=== PATIENT | female | born 1980 | race Hispanic/Latino ===

== ENCOUNTER 2017-09-22 07:05 | Day surgery (SDC) | payer BC ==
[2017-09-20 16:47] VITALS: BP 122/74
[2017-09-20 16:55] LABS: BASOPHILS % (AUTO) 0.6 % (0.0-5.0); EOSINOPHILS % (AUTO) 1.3 % (0.0-8.0); HEMATOCRIT 35.5 % (36-48); LYMPHOCYTES % (AUTO) 30.3 % (21.0-51.0); MEAN CORPUSCULAR HEMOGLOBIN 32.1 pg (27.0-33.0); MEAN CORPUSCULAR HGB CONC 35.7 g/dL (32.0-36.0); MEAN CORPUSCULAR VOLUME 89.9 fL (79-99); MONOCYTES % (AUTO) 9.1 % (3.0-13.0); NEUTROPHILS % (AUTO) 58.7 % (40.0-77.0); PLATELET COUNT (AUTO) 268 K/uL (130-400); RED BLOOD CELL COUNT(AUTO) 3.95 MIL/uL (4.00-5.50); RED CELL DISTRIBUTION WIDTH 12.6 % (11.0-15.5); WHITE BLOOD COUNT (AUTO) 5.6 K/uL (4.8-10.8)
[~2017-09-22] VITALS: Ht 175.3 cm; Wt 69.0 kg
[2017-09-22] VITALS (16 sets, daily range): BP systolic 114–168; BP diastolic 60–88
[2017-09-22] MEDS ORDERED: FENTANYL CITRATE PF 50 MCG/1 ML 2ML VIAL ONE (07:36)
[2017-09-22] MEDS ORDERED: MIDAZOLAM HCL 1 MG/ML 2ML VIAL ONE (07:36)
[2017-09-22] MEDS ORDERED: PROPOFOL 10 MG/ML 20ML VIAL IV ONE (07:36)
[2017-09-22] MEDS ORDERED: LACTATED RINGERS 1000ML 1,000 ML IV ONE (07:46)
[2017-09-22] MEDS: CEFAZOLIN SODIUM 1 GM VIAL ONE ×2 (08:23→08:47)
[2017-09-22] MEDS ORDERED: FENTANYL CITRATE PF 50 MCG/1 ML 5ML AMP IV ONE (09:03)
[2017-09-22] MEDS ORDERED: MEPERIDINE-PF 25 MG/ML SYG ONE (10:08)
[2017-09-22] MEDS ORDERED: KETOROLAC TROMETHAMINE 30MG/ML ONE (10:08)
[2017-09-22] MEDS ORDERED: MORPHINE SULFATE 2 MG/ML 1ML SYG ONE (10:34)
[2017-09-22] MEDS ORDERED: TYL3 PO (11:36)
[2017-09-22] MEDS ORDERED: TRAM50TA4 PO (11:55)
[2017-09-22] MEDS ORDERED: TRAMADOL HCL 50 MG TABLET PO PRN (12:00)
== END 2017-09-22 12:10 | disposition home or self-care (01) ==
LOC: DAH 07:05
PROVIDERS: ATTEND Specialist
DX: Z30.2 Encounter for sterilization (principal); Z79.899 Other long term (current) drug therapy; M51.26 Other intervertebral disc displacement, lumbar region
CPT/HCPCS: 36415; 58671; 84703; 85025; 86850; 86900; 86901; A4215; A4264; A4351; A4510; C1769 ×2; J0690; J1885; J2175; J2250; J2704; J3010 ×2; J7030; J7120

== ENCOUNTER 2019-09-28 13:18 | Emergency (ER) | payer BC, OTHER ==
[~2019-09-28 13:18] MED LIST: TRAM50TA4 PO
[2019-09-28 14:50] LABS: RAPID GROUP A STREP NEGATIVE (NEGATIVE)
== END 2019-09-28 15:00 | disposition home or self-care (01) ==
LOC: EDH 13:18
DX: J01.90 Acute sinusitis, unspecified (principal)
CPT/HCPCS: 87804; 87880

== ENCOUNTER → 2020-06-03 | Outpatient (CLI) | payer OTHER | END | disposition home or self-care (01) | LOC: RAH 11:05 | PROVIDERS: ATTEND Family Medicine | DX: E22.1 Hyperprolactinemia (principal); H53.9 Unspecified visual disturbance; R26.81 Unsteadiness on feet | CPT/HCPCS: 70551 ==

== ENCOUNTER → 2020-06-21 | Outpatient (CLI) | payer OTHER | END | disposition home or self-care (01) | LOC: LAB 15:36 | PROVIDERS: ATTEND Family Medicine | DX: N92.5 Other specified irregular menstruation (principal) | CPT/HCPCS: 36415; 82670 ==

== ENCOUNTER → 2020-07-24 | Outpatient (CLI) | payer OTHER | END | disposition home or self-care (01) | LOC: RAH 14:31 | PROVIDERS: ATTEND Specialist | DX: Z12.31 Encounter for screening mammogram for malignant neoplasm of breast (principal) | CPT/HCPCS: 77067 ==